=== PATIENT | male | born 1945 | race Caucasian/White ===

== ENCOUNTER 2017-08-08 09:54 | Observation (INO) ==
--- NOTE | 2017-08-08 10:08 | Emergency Department Note ---
Disposition Clinical Impression: Atrial fibrillation Qualifiers: Atrial fibrillation type: unspecified Qualified Code(s): I48.91 - Unspecified atrial fibrillation Disposition: Admitted As Inpatient Condition: Fair Time of Disposition: 11:51 Arrhythmia/Palpitations HPI - General Chief Complaint: ED Arrhythmia/Palpitations Stated Complaint: High HR/tachycardia/dyspnea-sent per pcp Time Seen by Provider: 08/08/17 09:58 Source: patient Mode of arrival: ambulatory Limitations: no limitations Nursing Notes Reviewed: Yes Vital Signs Reviewed: Yes - History of Present Illness HPI Narrative: 71-year-old male who was at his normal follow-up office visit was found to be in A. fib with RVR with a heart rate of 146. She denies pain at this point in time. 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 Severity: moderate Context: occurred during rest Arrhythmia History: other (None) Associated symptoms: Reports: denies other symptoms Treatments prior to arrival: other (None) - Related Data Home Medications Medication Instructions Recorded Confirmed Albuterol Sulfate [Proair 2 puff IH Q4-6H PRN 06/10/16 08/08/17 Respiclick] Aspirin [Lo-Dose Aspirin EC] 81 mg PO DAILY 06/10/16 08/08/17 Fluticasone Propionate Nasal 1 spray IH BID 06/10/16 08/08/17 [Flonase] Fluticasone/Salmeterol [Advair Hfa 2 puff IH BID 06/10/16 08/08/17 230-21 Mcg Inhaler] Gabapentin [Neurontin] 300 mg PO HS 06/10/16 08/08/17 Glucosamn/Condroitn/C/Mn/[place] 2 tab PO DAILY 06/10/16 08/08/17 [Cvs Glucosamine Chondroit Cplt] Ipratropium [place] [Ipratropium 2 spray IH BID 06/10/16 08/08/17 [place]] Montelukast [Singulair] 10 mg PO DAILY 06/10/16 08/08/17 Omeprazole [PriLOSEC] 20 mg PO QMWFSA 06/10/16 08/08/17 Potassium Chloride [Klor-Con 10] 10 meq PO DAILY 06/10/16 08/08/17 Ropinirole HCl [Requip] 2 mg PO DAILY 06/10/16 08/08/17 Sertraline [Zoloft] 50 mg PO DAILY 06/10/16 08/08/17 Triamterene/HCTZ 37.5/25mg 1 each PO DAILY 06/10/16 08/08/17 [Dyazide] Multivitamin [One Daily Essential] 1 tab PO DAILY 07/11/17 08/08/17 Allergies Allergy/AdvReac Type Severity Reaction Status Date / Time azithromycin AdvReac Diarrhea Verified 07/11/17 08:05 All systems ED: reviewed and negative except as stated. Constitutional: Denies: fever, chills, weakness, weight change Eyes: Denies: eye pain, eye discharge, vision change ENT ED: Denies: ear pain, throat pain, dental pain, hearing loss, epistaxis, congestion, dysphagia Cardiovascular: Reports: palpitations. Denies: chest pain, dyspnea on exertion , edema, syncope Respiratory: Denies: cough, dyspnea, wheezes, hemoptysis, stridor Gastrointestinal: Denies: abdominal pain, nausea, vomiting, diarrhea, constipation, hematemesis, melena, hematochezia Genitourinary: Denies: urgency, dysuria, frequency, hematuria Musculoskeletal: Denies: back pain, neck pain, arthralgia, myalgia Integumentary: Denies: rash, abrasion, lesions Neurological: Denies: headache, weakness, numbness, paresthesias, confusion, abnormal gait, vertigo Psychiatric: Denies: anxiety, depression, suicidal thoughts, homicidal thoughts , auditory hallucinations, visual hallucinations Endocrine: Denies: fatigue Hematological/Lymphatic: Denies: easy bleeding, easy bruising Allergic/Immunologic: Denies: facial swelling, urticaria Past Medical History - Past Medical History Medical history: Reports: asthma, GERD, hyperlipidemia Surgical history: Reports: cholecystectomy, herniorrhaphy, vasectomy Psychiatric history: Reports: depression - Social History Smoking Status: Never smoker Smokeless Tobacco Status: No Alcohol use: Reports: rarely Drug use: Reports: none Physical Exam - General Limitations: no limitations General appearance: alert, in no apparent distress - Head Head exam: atraumatic, normocephalic, normal inspection - Eye Eye exam: Present: normal appearance, PERRL, EOMI - ENT ENT exam: normal exam, normal oropharynx, mucous membranes moist - Neck Neck exam: Present: normal inspection, full ROM, trachea midline - Chest Chest inspection: Present: normal inspection, symmetric chest wall rise - Respiratory Respiratory exam: Present: normal lung sounds bilaterally - Cardiovascular Cardiovascular exam: Present: tachycardia, irregular rhythm, normal heart sounds - Abdominal Exam Abdominal exam: Present: soft, Non-Tender. Absent: tenderness, distention, guarding, rebound, rigidity - Extremities Exam Extremities exam: Present: normal inspection, full ROM. Absent: tenderness, pedal edema - Expanded Lower Extremity Exam Neurovascular/Tendon exam: Absent: motor deficit, sensory deficit, tendon deficit Gait: observed and normal - Back Exam Back exam: Present: normal inspection, full ROM. Absent: tenderness - Neurological Exam Neurological exam: Present: alert, oriented X3 - Psychiatric Psychiatric exam: Present: normal affect, normal mood - Skin Skin exam: Present: warm, dry, intact, normal color Course - Reevaluation(s) Reevaluation #1: Review of records of shows an echocardiogram done on 05/25/2016 shows an EF of 55% Time: 10:10 - Consultations Consultation #1: Discussed with , admit Time: 11:51 Consultation #2: Discussed with Dr. Johnston, will see and consult would not start heparin. Time: 12:17 Vital Signs Temperature 97.8 F 08/08/17 09:59 Pulse Rate 140 08/08/17 09:59 Respiratory Rate 18 08/08/17 09:59 Blood Pressure 142/60 08/08/17 09:59 O2 Sat by Pulse Oximetry 97 08/08/17 09:59 Temperature 97.8 F 08/08/17 09:59 Pulse Rate 78 08/08/17 12:08 Respiratory Rate 18 08/08/17 12:08 Blood Pressure 119/85 08/08/17 12:08 O2 Sat by Pulse Oximetry 99 08/08/17 12:08 Oxygen Delivery Oxygen Delivery Room Air Arrhythmia/Palpitations - Lab Data Result diagrams: 08/08/17 10:13 08/08/17 10:13 Lab Results 08/08/17 08/08/17 08/08/17 Range/Units 10:13 10:13 10:13 WBC 8.5 (4.3-11.1) K/mcL RBC 5.72 H (4.19-5.50) M/mcL Hgb 17.8 H (12.9-16.9) g/dL Hct 51.8 H (37.5-50.1) % MCV 90.6 (83.0-100.0) fL MCH 31.1 (28.0-33.3) pg MCHC 34.4 (31.6-35.5) g/dL RDW 12.6 (11.5-14.5) % Plt Count 210 (140-400) K/mcL MPV 11.0 (9.4-12.4) fL Immature Gran % 1.4 (0-4) % Seg Neutrophils % 66.6 % Lymphocytes % 16.0 % Monocytes % 13.2 % Eosinophils % 1.6 % Basophils % 1.2 % Neutrophils # 5.7 (1.6-8.9) K/mcL Lymphocytes # 1.4 (0.6-4.6) K/mcL Monocytes # 1.1 (0.0-1.3) K/mcL Eosinophils # 0.1 (0.0-0.6) K/mcL Basophils # 0.1 (0.0-0.2) K/mcL PT 10.3 (9.4-12.1) Seconds INR 1.0 APTT 36.2 H (26.0-36.0) Seconds Sodium 140 (136-145) mEq/L Potassium 4.1 (3.5-5.1) mEq/L Chloride 105 (98-107) mEq/L Carbon Dioxide 25 (23-29) mEq/L BUN 19 (8-23) mg/dL Creatinine 1.12 (0.70-1.30) mg/dL Est GFR ( Amer) > 60 (> 60) Est GFR (Non-Af Amer) > 60 (> 60) BUN/Creatinine Ratio 17 (6-26) Glucose 108 H (70-105) mg/dL Calculated Osmolality 293 (280-300) Calcium 9.7 (8.6-10.3) mg/dL Troponin I < 0.03 (< 0.04) ng/mL TSH 2.360 (0.340-5.600) mcIU/mL - EKG Data EKG attestation: Yes I reviewed and interpreted this EKG. Rate: tachycardia Rhythm: A.Fib [place]/QRS: normal Interpretation: other (A. fib RVR)
[2017-08-08 10:49] LABS: Basophils # 0.1 K/mcL (0.0-0.2); Basophils % 1.2 %; Eosinophils # 0.1 K/mcL (0.0-0.6); Eosinophils % 1.6 %; Hematocrit 51.8 % (37.5-50.1); Hemoglobin 17.8 g/dL (12.9-16.9); Immature Granulocytes % 1.4 % (0-4); Lymphocytes # 1.4 K/mcL (0.6-4.6); Mean Corpuscular HGB Conc 34.4 g/dL (31.6-35.5); Mean Corpuscular Hemoglobin 31.1 pg (28.0-33.3); Mean Corpuscular Volume 90.6 fL (83.0-100.0); Monocytes # 1.1 K/mcL (0.0-1.3); Monocytes % 13.2 %; Neutrophils # 5.7 K/mcL (1.6-8.9); Platelet Count 210 K/mcL (140-400); Red Blood Count 5.72 M/mcL (4.19-5.50); Red Cell Distribution Width 12.6 % (11.5-14.5); Segmented Neutrophils % 66.6 %
[2017-08-08 10:52] LABS: Prothrombin Time 10.3 Seconds (9.4-12.1)
[2017-08-08 10:55] LABS: Activated Partial Thrombo Time 36.2 Seconds (26.0-36.0)
[2017-08-08 11:12] LABS: Troponin I < 0.03 ng/mL (< 0.04)
[2017-08-08 11:14] LABS: BUN/Creatinine Ratio 17 (6-26); Blood Urea Nitrogen 19 mg/dL (8-23); Calcium 9.7 mg/dL (8.6-10.3); Carbon Dioxide 25 mEq/L (23-29); Chloride 105 mEq/L (98-107); Glucose 108 mg/dL (70-105); Osmolality,Calculated 293 (280-300); Potassium 4.1 mEq/L (3.5-5.1); Sodium 140 mEq/L (136-145); eGFR For African Americans > 60 (> 60); eGFR For Non-African Americans > 60 (> 60)
[2017-08-08] MEDS ORDERED: Naloxone 0.4 MG/ML INJ IVP PRN (13:15)
--- NOTE | 2017-08-08 13:20 | Internal Med History&Physical ---
Date of Encounter: 08/08/17 Time of Encounter: 13:14 Internal Medicine - H&P: HPI Admitted From: Home Plans for Post Hospital Care: Home History of present illness: Mr. Villaseñor is a 71 year old male with no previous cardiac history except hypertension, chronic leg cramp and asthma takes breathing treatments at home sent to ER by his PCP today after finding a favorite RVR heart rate 146 at his office. PCP also talked to Dr. Pérez's cardiovascular lab director and he advised to send to ER. Patient has complain of intermittent exertional dyspnea and fatigue for last 2-3 weeks but not associated with chest pain, dizziness, sweating, headache , presyncope, nausea, vomiting. He thought it is more like asthma and kept on taking more and more breathing treatment. In ER Cardizem drip was just started and patient converted to normal sinus rhythm and rate. On-call cardiovascular lab director was consulted by ER physician who did not advise for heparin. On-call hospitalist got called for the admission with the diagnosis of A. fib RVR new onset and need further workup. During my interview patient appeared comfortable without symptoms and heart rate in his 80s with normal sinus rhythm while Cardizem drip is a continuation. Patient denies fever, chills, abdominal pain, urinary or bowel complaint. Past Med Surg Social Fam HX - Past Medical History Medical history: asthma, GERD, hyperlipidemia Psychiatric history: depression - Past Surgical History Surgical History: cholecystectomy, herniorrhaphy, vasectomy - Social History Smoking Status: Never smoker Smokeless Tobacco Status: No Alcohol use: none Drug use: none - Family History Father Adopted: No Family Member Ethnicity: Non- Living Status: Hx Family Cardiac Disorders: Yes Hx Family Respiratory Disorders: No Hx Family Cancer: No Hx Family GI Disorders: Yes (Hernia) Hx Family Endocrine Disorder: No Hx Family Neuromuscular Disorders: No Hx Family Neurologic Disorders: No Hx Family HEENT Disorders: No Hx Family Autoimmune Disorders: No Internal Medicine - H&P: Meds Albuterol Sulfate [Proair Respiclick] 2 puff IH Q4-6H PRN 06/10/16 [History] Aspirin [Lo-Dose Aspirin EC] 81 mg PO DAILY 06/10/16 [History] Fluticasone Propionate Nasal [Flonase] 1 spray IH BID 06/10/16 [History] Fluticasone/Salmeterol [Advair Hfa 230-21 Mcg Inhaler] 2 puff IH BID 06/10/16 [ History] Gabapentin [Neurontin] 300 mg PO HS 06/10/16 [History] Glucosamn/Condroitn/C/Mn/[place] [Cvs Glucosamine [place]ond[place] Cplt] 2 tab PO DAILY 06/10/16 [History] Ipratropium [place] [Ipratropium [place]] 2 spray IH BID 06/10/16 [History] Montelukast [Singulair] 10 mg PO DAILY 06/10/16 [History] Omeprazole [PriLOSEC] 20 mg PO QMWFSA 06/10/16 [History] Potassium Chloride [Klor-Con 10] 10 meq PO DAILY 06/10/16 [History] Ropinirole HCl [Requip] 2 mg PO DAILY 06/10/16 [History] Sertraline [Zoloft] 50 mg PO DAILY 06/10/16 [History] Triamterene/HCTZ 37.5/25mg [Dyazide] 1 each PO DAILY 06/10/16 [History] Multivitamin [One Daily Essential] 1 tab PO DAILY 07/11/17 [History] 3 Allergy/AdvReac Type Severity Reaction Status Date / Time azithromycin AdvReac Diarrhea Verified 07/11/17 08:05 All Systems PM: A 10-system review of systems was performed and is negative for pertinent findings except as documented above in the HPI. - Constitutional Vitals: Temp Pulse Resp BP Pulse Ox 98.2 F 78 18 130/84 99 08/08/17 12:53 08/08/17 12:08 08/08/17 12:53 08/08/17 12:53 08/08/17 12:08 Exam: General appearance: No acute distress, A&O X 3. at bedside Head exam: Atraumatic Eye exam: EOMI, PERRLA ENT exam: Moist oral mucosa Neck nontender, supple Respiratory exam: Clear to auscultation bilaterally Cardiovascular exam: Regular rate and rhythm, no systolic murmur Abdominal exam: Soft, nontender, nondistended, positive bowel sounds Extremities exam: No calf tenderness, no pedal edema Present: Skin-no rash, warm, dry, intact Neurological exam: Alert, awake, oriented 3, CN II-XII intact, no focal deficits. No facial droop. Normal speech. Internal Med - H&P Results - Labs CBC & Chem 7: 08/08/17 10:13 08/08/17 10:13 - Assessment and plan (1) Atrial fibrillation with RVR Current Visit: Yes Status: Acute Assessment and plan: Acute onset. Now converted to normal sinus rhythm. Patient is not a smoker, nonalcoholic does not take excessive caffeine. TSH, CMP, fasting lipid profile , echocardiogram ordered. Consulted cardiology by ER physician. Continue Cardizem drip. Continue home dose aspirin. Anticoagulation decision as per cardiology. (2) Hypertension Current Visit: Yes Status: Acute Assessment and plan: Stable. Continue home medicine. Close monitoring. Qualifiers: Hypertension type: essential hypertension Qualified Code(s): I10 - Essential (primary) hypertension (3) DVT prophylaxis Current Visit: Yes Status: Acute Assessment and plan: SCDs, Lovenox - Time Spent With Patient Total time spent is greater than 50% in coordination of care (as documented) at patient's floor/unit and/or counseling patient:
[2017-08-08 13:59] LABS: Alanine Aminotransferase 43 Units/L (7-52); Albumin 4.3 g/dL (3.5-5.7); Albumin/Globulin Ratio 1.9 (1.1-2.2); Alkaline Phosphatase 76 Units/L (34-104); Aspartate Amino Transferase 30 Units/L (13-39); Bilirubin,Direct 0.1 mg/dL (0.0-0.2); Bilirubin,Indirect 0.4 mg/dL (0.0-1.2); Bilirubin,Total 0.5 mg/dL (0.3-1.0); Globulin 2.3 g/dL (2.4-3.5); Magnesium 2.4 mg/dL (1.6-2.6); Total Protein 6.6 g/dL (6.4-8.9)
--- NOTE | 2017-08-08 14:06 | Cardiology Consult Note ---
<Ramon Arenas - Last Filed: 08/08/17 14:03> Date of Encounter: 08/08/17 Time of Encounter: 14:00 Assessment and Plan (1) Atrial fibrillation with RVR Current Visit: Yes Status: Acute Atrial fibrillation with RVR with HR 140-150's in ED. Converted to NSR on IV cardizem gtt. Likely exacerbated by asthma flare. Underwent cardiac work-up last year that was benign. 05/2016-TTE;LVEF 55%. Normal left ventricular size and systolic function. There is evidence of mild diastolic dysfunction of the left ventricle. Normal right ventricular size and function. Mild mitral regurgitation. No pulmonary hypertension. Stress test 05/2016- Exercise nuclear stress test negative for ischemia or infarct. TSH normal. Check limited TTE to assess LV function. Unknown duration of afib. SOB for 2-3 weeks with asthma. Recommend starting cardizem CD 120 mg daily. CHADS VASc =1 for age (denies history of HTN). Coumadin vs. NOAC indication , use, and adverse effects discussed. I will discuss further with Dr. Johnston. Discussion w patient/family: The assessment and plan as outlined above was discussed with the patient and/or family members who expressed understanding and agreement. All questions were answered. Thank you for involving us in the care of your patient. Please call with any questions. History of Present Illness Consult date: 08/08/17 Requesting physician: Yadi Singh History of present illness: Mr. Villaseñor is a 71 year old male Past Med Surg Social Fam HX - Past Medical History Medical history: asthma, GERD, hyperlipidemia Psychiatric history: depression - Past Surgical History Surgical History: cholecystectomy, herniorrhaphy, vasectomy - Social History Smoking Status: Never smoker Smokeless Tobacco Status: No Alcohol use: none Drug use: none - Family History Father Adopted: No Family Member Ethnicity: Non- Living Status: Hx Family Cardiac Disorders: Yes Hx Family Respiratory Disorders: No Hx Family Cancer: No Hx Family GI Disorders: Yes (Hernia) Hx Family Endocrine Disorder: No Hx Family Neuromuscular Disorders: No Hx Family Neurologic Disorders: No Hx Family HEENT Disorders: No Hx Family Autoimmune Disorders: No Medications and Allergies Albuterol Sulfate [Proair Respiclick] 2 puff IH Q4-6H PRN 06/10/16 [History] Aspirin [Lo-Dose Aspirin EC] 81 mg PO DAILY 06/10/16 [History] Fluticasone Propionate Nasal [Flonase] 1 spray IH BID 06/10/16 [History] Fluticasone/Salmeterol [Advair Hfa 230-21 Mcg Inhaler] 2 puff IH BID 06/10/16 [ History] Gabapentin [Neurontin] 300 mg PO HS 06/10/16 [History] Glucosamn/Condroitn/C/Mn/[place] [Cvs Glucosamine Chondroit Cplt] 2 tab PO DAILY 06/10/16 [History] Ipratropium [place] [Ipratropium [place]] 2 spray IH BID 06/10/16 [History] Montelukast [Singulair] 10 mg PO DAILY 06/10/16 [History] Omeprazole [PriLOSEC] 20 mg PO QMWFSA 06/10/16 [History] Potassium Chloride [Klor-Con 10] 10 meq PO DAILY 06/10/16 [History] Ropinirole HCl [Requip] 2 mg PO DAILY 06/10/16 [History] Sertraline [Zoloft] 50 mg PO DAILY 06/10/16 [History] Triamterene/HCTZ 37.5/25mg [Dyazide] 1 each PO DAILY 06/10/16 [History] Multivitamin [One Daily Essential] 1 tab PO DAILY 07/11/17 [History] 3 Allergy/AdvReac Type Severity Reaction Status Date / Time azithromycin AdvReac Diarrhea Verified 07/11/17 08:05 All Systems Review: The remainder of the systems were reviewed and are negative Physical Examination Vital Signs, Last 4 Hours Temp Pulse Resp BP Pulse Ox 08/08/17 13:31 97.8 F 77 18 127/77 95 08/08/17 12:53 98.2 F 18 130/84 08/08/17 12:08 78 18 119/85 99 Results 08/08/17 10:13 08/08/17 10:13 Consult Discharge Plan - Plan Referrals: Stephy Green MD [Primary Care Provider] - <William Johnston - Last Filed: 08/08/17 18:51> Date of Encounter: 08/08/17 - Attending Attestation I have personally performed a face to face evaluation on this patient. I have reviewed and agree with the care plan. History and Exam by me shows: CC: Shortness of breath, seasonal allergies Pt presented to primary care office today for evaluation of asthma, seasonal allergies, found to be in A Fib with RVR, heart rates 130s to 150s. He felt slighlty more short of breath, with mild chest tightness which he attributed to asthma. He has been using his albuteral nebulizer much more frequently, and his rescue inhaler more often. He notes when using SVN with albuterol, becomes anxious, feels his heart race, takes up to 30 mins for symptoms to resolve. With his rescue MDI symptoms are more pronounced. He has taken an OTC decongestent on o1, was less congested, not sure it made any difference with heart rate increase. He underwent cardiac eval one year ago for palpitations, stress and echo were reportedly normal. He is comfortable at present without symptoms. PMHx: reviewed PE: pt seen and examined, agree with documented findings IMP/Plan: 1. A fib with RVR converted to NSR with bolus IV diltiazem, will continue low dose PO diltiazem, echo cardiogram ordered 2. Asthma; controlled on inhalation tx, may be contributing to tachyycardia, consider Xopenex? 3. DEVON -on CPAP, not following with sleep medicine, may benefit from pulmonary consult and review of CPAP chip for optimal settings and compliance. Assessment and Plan Discussion w patient/family: The assessment and plan as outlined above was discussed with the patient and/or family members who expressed understanding and agreement. All questions were answered. Thank you for involving us in the care of your patient. Please call with any questions. History of Present Illness History of present illness: Mr. Villaseñor is a 71 year old male All Systems Review: The remainder of the systems were reviewed and are negative Physical Examination Vital Signs, Last 4 Hours Temp Pulse Resp BP Pulse Ox 08/08/17 16:08 98.2 F 67 18 138/79 93 Results 08/08/17 10:13 08/08/17 10:13 Lab Results 08/08/17 15:43 Troponin I < 0.03 TSH 1.605
[2017-08-08] MEDS: Diltiazem CD (24hr) 120 MG CAPSULE PO SCH (14:36)
[2017-08-08] MEDS: Acetaminophen 325 MG TABLET PO PRN (14:36)
[2017-08-08 16:13] LABS: Troponin I < 0.03 ng/mL (< 0.04)
[2017-08-08 16:26] LABS: Thyroid Stimulating Hormone 1.605 mcIU/mL (0.340-5.600)
[2017-08-08] MEDS ORDERED: Perflutren Lipid Microsphere 1.3 ML in 0.9 % Sodium Chloride 8.7 ML IVP ONE (20:16)
[2017-08-08] MEDS ORDERED: Perflutren Lipid Microsphere 2 ML VIAL ONE (20:30)
[2017-08-08] MEDS ORDERED: Gabapentin 300 MG CAPSULE PO SCH (21:00)
[2017-08-08] MEDS: Budesonide/Formoterol 160/4.5 MDI IH SCH (21:19)
[2017-08-09] MEDS: Acetaminophen 325 MG TABLET PO PRN (00:07)
[2017-08-09 04:12] LABS: Basophils # 0.1 K/mcL (0.0-0.2); Basophils % 1.2 %; Eosinophils # 0.2 K/mcL (0.0-0.6); Eosinophils % 1.8 %; Hematocrit 46.4 % (37.5-50.1); Immature Granulocytes % 1.2 % (0-4); Lymphocytes # 1.7 K/mcL (0.6-4.6); Lymphocytes % 19.2 %; Mean Corpuscular HGB Conc 34.1 g/dL (31.6-35.5); Mean Corpuscular Hemoglobin 30.7 pg (28.0-33.3); Mean Corpuscular Volume 90.3 fL (83.0-100.0); Mean Platelet Volume 10.5 fL (9.4-12.4); Monocytes % 11.4 %; Neutrophils # 5.7 K/mcL (1.6-8.9); Platelet Count 175 K/mcL (140-400); Red Blood Count 5.14 M/mcL (4.19-5.50); Red Cell Distribution Width 12.8 % (11.5-14.5); Segmented Neutrophils % 65.2 %
[2017-08-09 04:17] LABS: Hemoglobin 15.8 g/dL (12.9-16.9)
[2017-08-09 04:27] LABS: BUN/Creatinine Ratio 18 (6-26); Blood Urea Nitrogen 21 mg/dL (8-23); Carbon Dioxide 28 mEq/L (23-29); Chloride 103 mEq/L (98-107); Chol/HDL Ratio 4.7 (0-4.9); Cholesterol 169 mg/dL (< 200); Glucose 108 mg/dL (70-105); HDL Cholesterol 36 mg/dL (40-59); LDL Cholesterol,Calculated 100 mg/dL (0-99); Osmolality,Calculated 290 (280-300); Potassium 3.9 mEq/L (3.5-5.1); Sodium 138 mEq/L (136-145); Triglycerides 167 mg/dL (< 150); eGFR For African Americans > 60 (> 60); eGFR For Non-African Americans > 60 (> 60)
[2017-08-09] MEDS: Budesonide/Formoterol 160/4.5 MDI IH SCH (08:16)
[2017-08-09] MEDS ORDERED: rOPINIRole 1 MG TABLET PO SCH (09:00)
[2017-08-09] MEDS: Diltiazem CD (24hr) 120 MG CAPSULE PO SCH (09:00)
[2017-08-09] MEDS ORDERED: Multivit/Ca/Min/Fe/FA 1 TAB TABLET PO SCH (09:00)
[2017-08-09] MEDS ORDERED: Aspirin Enteric Coated 81 MG Tablet PO SCH (09:00)
[2017-08-09] MEDS ORDERED: Aspirin 81 MG TAB.CHEW PO SCH (09:00)
--- NOTE | 2017-08-09 10:34 | Cardiology Progress Note ---
Date of Encounter: 08/09/17 Time of Encounter: 10:30 Assessment and Plan (1) Atrial fibrillation with RVR Current Visit: Yes Status: Acute Atrial fibrillation with RVR with HR 140-150's in ED. Converted to NSR on IV cardizem gtt. Likely exacerbated by asthma flare and frequent use of albuterol. Underwent cardiac work-up last year that was benign. [id number] 55%. Normal left ventricular size and systolic function. There is evidence of mild diastolic dysfunction of the left ventricle. Normal right ventricular size and function. Mild mitral regurgitation. No pulmonary hypertension. Stress test 05/2016- Exercise nuclear stress test negative for ischemia or infarct. TSH normal. Repeat TTE shows preserved LV function. There is moderate diastolic dysfunction. CXR showed no acute process. He is euvolemic on exam to assess LV function. Recommend starting cardizem CD 120 mg daily. CHADS VASc =1 for age (denies history of HTN). Discussed with Dr. Johnston. Will continue asa 81 mg daily for CVA prevention. Telemetry review shows NSR currently. Avg HR 89 bpm. There was some intermittent PAF overnight. Currently NSR. Increase cardizem to 180 mg daily. Recommend considering changing albuterol to alternative such as xopenex. Out- patient cardiology f/u will be coordinated by [facility]. Discussion w patient/family: The assessment and plan as outlined above was discussed with the patient and/or family members who expressed understanding and agreement. All questions were answered. Thank you for involving us in the care of your patient. Please call with any questions. Subjective Principal diagnosis: new onset atrial fibrillation with RVR Interval history: Mr. Villaseñor reports no new complaints overnight. Denies palpitations or chest pain. Objective Vital Signs, Last 4 Hours Temp Pulse Resp BP Pulse Ox 08/09/17 08:16 16 112/72 97 08/09/17 06:51 97.5 F L 54 18 112/72 95 General: Conversant, No Apparent Distress HEENT: Atraumatic, Normocephaly, Mucus Membranes Moist Neck: No JVD, Normal carotid pulses Cardiac: Reg Rate and Rhythm, Normal S1 and S2, No Murmur Lungs: Normal Breath Sounds, No Wheeze, Rales, Rhonchi Neuro: Alert and responsive, No focal deficits noted Abdomen: Soft, Non-Tender Skin: No rashes noted on visualized skin Musculoskeletal: No Chest Wall Tenderness Extremities: No Clubbing, No Cyanosis, No Edema, Normal Pulses Results 08/09/17 03:40 08/09/17 03:40 Lab Results 08/08/17 08/09/17 08/09/17 15:43 03:40 03:40 WBC 8.7 Hgb 15.8 D Hct 46.4 Plt Count 175 Sodium 138 Potassium 3.9 Chloride 103 Carbon Dioxide 28 BUN 21 Creatinine 1.18 Glucose 108 H Calcium 9.0 Troponin I < 0.03 TSH 1.605 - Imaging and Cardiology Echo: report reviewed - EKG Interpretation EKG results cardiology: personally reviewed Consult Discharge Plan - Plan Referrals: Stephy Green MD [Primary Care Provider] -
[2017-08-09] MEDS ORDERED: Diltiazem SR (12hr) 60 MG CAPSULE PO ONE (10:40)
[2017-08-09 10:45] VITALS: BP 143/83
[2017-08-09] MEDS ORDERED: IPRATROPIUM BROMIDE IH SCH (12:30)
[2017-08-09] MEDS ORDERED: Fluticasone Propionate Nasal 50 MCG/SPRAY BOTTLE NS SCH (12:30)
[2017-08-09] MEDS ORDERED: NON-FORMULARY MEDICATION 1 EACH EACH (Glucosamn/Condroitn/C/Mn/Boron [Cvs Glucosamine Chon PO SCH (12:30)
[2017-08-09] MEDS ORDERED: Levalbuterol Neb 1.25 MG/3 ML IH PRN (12:30)
--- NOTE | 2017-08-09 12:32 | Discharge Summary ---
- NOTES TO OUTPATIENT PROVIDER Notes to Outpatient Provider: Follow up with PCP in 2-3 days after discharge. Discuss starting statin due to increased LDL and decreased HDL (ASCVD risk 19%) . Follow up with cardiology as directed. Date of Encounter: 08/09/17 Time of Encounter: 12:30 - Discharge Diagnosis (1) Atrial fibrillation with RVR Priority: Primary Status: Resolved (2) Hypertension Priority: Secondary Status: Chronic Qualifiers: Hypertension type: essential hypertension Qualified Code(s): I10 - Essential (primary) hypertension (3) DVT prophylaxis Priority: Secondary Status: Acute Hospital course: Mr. Villaseñor is a 71 year old white male who was admitted for new onset atrial fibrillation with RVR. He had converted to NSR before admission. He was admitted for observation to general medical floor with telemetry. Cardiology was consulted. Labs were obtained and were unremarkable. ECHO showed LVEF 60- 65%, normal LV size and function, moderate LV diastolic dysfunction, and no valvular dysfunction. Per cardiology, cardizem was started and increased to 180 mg QD, and albuterol was changed to xopenex. He is currently asymptomatic in NSR. He has no complaints. Lipid panel showed LDL of 100 with low HDL. ASCVD risk was calculated to be 19%. I discussed starting a statin with patient , but he would like to defer to PCP. He will follow up with PCP in 2-3 days after discharge. He will follow up with cardiology as directed. Patient has met maximum benefit of this hospitalization and will be discharged home in stable condition. Discharge discussed with: patient, family, nurse, other (Pharmacist) - Time Spent with Patient Total time spent providing and/or coordinating discharge services: Less than 30 minutes - Discharge Medications Prescriptions: Levalbuterol Neb [Xopenex Neb] 1.25 mg IH [id number] PRN 7 Days #28 vial.neb PRN Reason: Shortness Of Breath/Wheezing Diltiazem CD (24hr) [Cardizem CD] 180 mg PO DAILY 7 Days #7 cap.er.24h Home Medications: Aspirin [Lo-Dose Aspirin EC] 81 mg PO DAILY 06/10/16 [History] Fluticasone Propionate Nasal [Flonase] 1 spray IH BID 06/10/16 [History] Fluticasone/Salmeterol [Advair Hfa 230-21 Mcg Inhaler] 2 puff IH BID 06/10/16 [ History] Gabapentin [Neurontin] 300 mg PO HS 06/10/16 [History] Glucosamn/Condroitn/C/Mn/[place] [Cvs Glucosamine Chondroit Cplt] 2 tab PO DAILY 06/10/16 [History] Ipratropium [place] 2 spray IH BID 06/10/16 [History] Montelukast [Singulair] 10 mg PO DAILY 06/10/16 [History] Omeprazole [PriLOSEC] 20 mg PO QMWFSA 06/10/16 [History] Potassium Chloride [Klor-Con 10] 10 meq PO DAILY 06/10/16 [History] Ropinirole HCl [Requip] 2 mg PO DAILY 06/10/16 [History] Sertraline [Zoloft] 50 mg PO DAILY 06/10/16 [History] Triamterene/HCTZ 37.5/25mg [Dyazide] 1 each PO DAILY 06/10/16 [History] Multivitamin [One Daily Essential] 1 tab PO DAILY 07/11/17 [History] Diltiazem CD (24hr) [Cardizem CD] 180 mg PO DAILY 7 Days #7 cap.er.24h 08/09/17 [Rx] Levalbuterol Neb [Xopenex Neb] 1.25 mg IH [id number] PRN 7 Days #28 vial.neb [Rx] Allergies/Adverse Reactions: 3 Allergy/AdvReac Type Severity Reaction Status Date / Time azithromycin AdvReac Diarrhea Verified 07/11/17 08:05 Date of admission: 08/08/17 12:06 Primary care physician: Stephy [facility] Consults: 08/08/17 12:16 Consult to Cardiology [CONS] Stat Comment: Consulting Provider: [facility] [place] Reason for Consult: A. fib with RVR that converted with Cardizem he will see the patient in consult would not start heparin at this time. Time Notified: 12:16 Call Completed: No Discharging clinician: Gaurang Latif Anticipated date of discharge: 08/09/17 - Constitutional Vitals: Temp Pulse Resp BP Pulse Ox 97.5 F L 60 18 143/83 95 08/09/17 10:44 08/09/17 10:44 08/09/17 10:44 08/09/17 10:44 08/09/17 10:44 General appearance: Present: cooperative, A&O X 3, pleasant, no acute distress, answers questions appropriately - Respiratory Respiratory exam: Present: CTAB. Absent: accessory muscle use, rales, rhonchi, wheezes Additional comments: Normal WOB - Cardiovascular Cardiovascular exam: Present: RRR, +S1, +S2. Absent: diastolic murmur, gallop, rubs, systolic murmur Additional comments: No BLE edema - GI/Abdominal GI/Abdominal exam: Present: normal bowel sounds, soft. Absent: distended, hepatomegaly, mass, splenomegaly, tenderness - Psychiatric Psychiatric exam: Present: normal affect, normal mood. Absent: agitated, anxious, depressed - Skin Skin exam: Present: dry, intact, warm. Absent: cyanosis, rash - Patient Status Disposition: Home, Self-Care Condition: Good Functional capacity at discharge: independent ambulation Overall status at discharge: patient is back to baseline - Discharge Instructions Instructions: Atrial Fibrillation (DC), Chronic Hypertension (DC) Follow Up With: Stephy Green MD [Primary Care Provider] - Additional Instructions: Follow up with PCP in 2-3 days after discharge. Discuss starting statin due to increased LDL and decreased HDL (ASCVD risk 19%). Follow up with cardiology as directed. - Diet and Activity Activity: resume usual activities as tolerated Diet: low fat, low cholesterol, low salt diet, other (Cardiac Diet) - VTE Reasons for not Prescribing Prophylaxis: Treatment not Indicated - Low risk for VTE Documentation of Mechanical Device: Intermittent pneumatic compression device
[2017-08-10] MEDS ORDERED: Diltiazem CD (24hr) 120 MG CAPSULE PO SCH (09:00)
--- NOTE | 2017-08-11 16:45 | Electrocardiograph Report ---
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
== END 2017-08-09 13:45 | disposition home or self-care (01) ==
LOC: EMEROO 09:54 → 2ANU 09:54
PROVIDERS: ADMIT Pediatrics; ATTEND Pediatrics